=== PATIENT | female | born 1960 | race Caucasian/White ===

== ENCOUNTER 2022-05-28 19:37 | Inpatient (IN) | payer BC ==
[~2022-05-28] VITALS: Ht 172.7 cm; Wt 7.4 kg
[2022-05-28 21:24] LABS: HEMATOCRIT. 34.3 % (36.0-48.0); HEMOGLOBIN. 12.5 g/dL (12.0-16.0); MEAN CORPUSCULAR HEMOGLOBIN 32.7 pg (28.0-32.0); MEAN CORPUSCULAR VOLUME 89.6 fL (81.0-99.0); MEAN PLATELET VOLUME 9.4 fl (7.4-10.4); PLATELET 187 x1000/uL (130-400); RED BLOOD CELL COUNT 3.83 mill/uL (4.2-5.4); RED CELL DISTRIBUTION WIDTH 12.8 % (11.6-14.6)
[2022-05-28 22:09] LABS: CHLORIDE 56 mEq/L (98-107)
[2022-05-28 22:13] LABS: PLATELET ESTIMATE NORMAL
[2022-05-28 22:21] LABS: ETHANOL BLOOD < 10 mg/dL; PHOSPHORUS 5.4 mg/dL (2.5-4.9)
[2022-05-28 23:03] LABS: CHLORIDE 58 mEq/L (98-107)
[2022-05-28 23:10] LABS: PHOSPHORUS 5.7 mg/dL (2.5-4.9)
[2022-05-28] MEDS ORDERED: POTASSIUM CHLORIDE 20MEQ TABLET SR PO ONE (23:45)
[2022-05-28] MEDS ORDERED: SODIUM CHLORIDE 0.9% 1,000 ML IV ONE (23:45)
[2022-05-28] MEDS ORDERED: KCL 20MEQ/100ML PREMIX 100 ML IV ONE (23:45)
[2022-05-29] VITALS (11 sets, daily range): BP systolic 97–151; BP diastolic 50–78
[2022-05-29] MEDS ORDERED: GABAPENTIN 300MG CAPSULE PO ONE (00:30)
[2022-05-29] MEDS ORDERED: SODIUM CHLORIDE 0.9% 1,000 ML IV SCH (07:00)
[2022-05-29] MEDS ORDERED: ACETAMINOPHEN 325MG TABLET PO PRN ×3 (07:00→07:30)
[2022-05-29] MEDS ORDERED: ONDANSETRON HCL 4MG/2ML INJ IV PRN (07:30)
[2022-05-29] MEDS ORDERED: DOCUSATE SODIUM 100MG CAPSULE PO PRN (07:30)
[2022-05-29] MEDS ORDERED: CLONIDINE 0.1MG TABLET PO PRN (07:30)
[2022-05-29] MEDS ORDERED: IPRATROPIUM/ALBUTEROL 0.5-3(2.5)MG/3ML NEB HHN PRN (07:30)
[2022-05-29] MEDS ORDERED: HYDROMORPHONE HCL/PF 2MG/ML CPJ IV PRN (07:30)
[2022-05-29] MEDS ORDERED: LORAZEPAM 2MG/ML CPJ IV PRN (07:30)
[2022-05-29] MEDS ORDERED: MAGNESIUM/ALUMINUM HYDROXIDE/SIMETHICONE 30ML UDC PO PRN (07:30)
[2022-05-29] MEDS ORDERED: DIPHENHYDRAMINE 50MG/ML VIAL IV PRN (07:30)
[2022-05-29] MEDS ORDERED: NALOXONE HCL 0.4MG/ML VIAL IV PRN (08:00)
[2022-05-29] MEDS: GUAIFENESIN 200MG/10ML SUGAR FREE UDC PO PRN ×3 (08:31→20:47)
[2022-05-29] MEDS ORDERED: POTASSIUM CHLORIDE 20MEQ/PACKET PO SCH (09:00)
[2022-05-29] MEDS: KCL 20MEQ/100ML PREMIX 100 ML IV SCH ×2 (11:16→13:34)
[2022-05-29 12:20] LABS: CHLORIDE 71 mEq/L (98-107)
[2022-05-29 12:32] LABS: HEMATOCRIT. 26.4 % (36.0-48.0); HEMOGLOBIN. 9.5 g/dL (12.0-16.0); MEAN CORPUSCULAR HEMOGLOBIN 32.7 pg (28.0-32.0); MEAN CORPUSCULAR VOLUME 91.2 fL (81.0-99.0); MEAN PLATELET VOLUME 10.5 fl (7.4-10.4); PLATELET 176 x1000/uL (130-400); RED CELL DISTRIBUTION WIDTH 12.9 % (11.6-14.6)
[2022-05-29 12:35] LABS: T4 FREE 1.58 ng/dL (0.76-1.46)
[2022-05-29 13:16] LABS: PLATELET ESTIMATE NORMAL
[2022-05-29] MEDS ORDERED: POTASSIUM CHLORIDE 20MEQ TABLET SR PO SCH (14:00)
[2022-05-29 14:11] LABS: HDL CHOLESTEROL 37 mg/dL (40-59); LDL CHOLESTEROL 80 mg/dL (5-100)
[2022-05-29] MEDS: POTASSIUM CHLORIDE INJ 40 MEQ in SODIUM CHLORIDE 0.9% 1,000 ML IV SCH ×3 (17:32→23:22)
[2022-05-29] MEDS: KCL 20MEQ/100ML X 2 FOR TOTAL KCL 40MEQ/200ML IV SCH ×2 (17:32→19:00)
[2022-05-29 17:38] LABS: CREATINE KINASE MB FRACTION 1.3 ng/mL (0.5-3.6)
[2022-05-29] MEDS: IPRATROPIUM/ALBUTEROL 0.5-3(2.5)MG/3ML NEB HHN PRN (17:57)
[2022-05-29] MEDS ORDERED: ZOLPIDEM TARTRATE 5MG TABLET PO PRN (21:00)
[2022-05-29 21:15] LABS: CHLORIDE 72 mEq/L (98-107)
[2022-05-29] MEDS ORDERED: LOPERAMIDE HCL 2MG CAPSULE PO PRN (21:33)
[2022-05-29] MEDS ORDERED: POTASSIUM CHLORIDE 20MEQ TABLET SR PO NR (22:30)
[2022-05-29] MEDS ORDERED: KCL 20MEQ/100ML PREMIX 100 ML IV NR (23:30)
[2022-05-30] VITALS (10 sets, daily range): BP systolic 92–136; BP diastolic 47–78
[2022-05-30] MEDS: HYDROCODONE/ACETAMINOPHEN 5/325MG TABLET PO PRN (00:23)
[2022-05-30] MEDS: IPRATROPIUM/ALBUTEROL 0.5-3(2.5)MG/3ML NEB HHN PRN (00:48)
[2022-05-30 04:49] LABS: CREATINE KINASE MB FRACTION 1.3 ng/mL (0.5-3.6)
[2022-05-30 06:15] LABS: HEMOGLOBIN. 9.5 g/dL (12.0-16.0); MEAN CORPUSCULAR HEMOGLOBIN 33.1 pg (28.0-32.0); MEAN CORPUSCULAR VOLUME 94.1 fL (81.0-99.0); MEAN PLATELET VOLUME 10.3 fl (7.4-10.4); PLATELET 146 x1000/uL (130-400); RED BLOOD CELL COUNT 2.87 mill/uL (4.2-5.4)
[2022-05-30 06:53] LABS: CHLORIDE 77 mEq/L (98-107)
[2022-05-30 06:56] LABS: CREATINE KINASE 237 IU/L (26-192); CREATINE KINASE MB FRACTION 1.1 ng/mL (0.5-3.6)
[2022-05-30] MEDS: APIXABAN 5 MG TABLET PO SCH ×2 (08:41→17:01)
[2022-05-30] MEDS: GUAIFENESIN 200MG/10ML SUGAR FREE UDC PO PRN ×2 (09:34→17:04)
[2022-05-30] MEDS ORDERED: POTASSIUM CHLORIDE 20MEQ TABLET SR PO SCH (10:00)
[2022-05-30 13:02] LABS: PLATELET ESTIMATE NORMAL
[2022-05-30 14:49] LABS: CLARITY URINE CLEAR (CLEAR); COLOR URINE YELLOW (YELLOW); KETONES URINE TRACE (NEGATIVE); LEUKOCYTE ESTERASE URINE TRACE (NEGATIVE); NITRITE URINE NEGATIVE (NEGATIVE); OCCULT BLOOD URINE TRACE (NEGATIVE); PROTEIN URINE 1+ (NEGATIVE); SPECIFIC GRAVITY URINE 1.016 (1.005-1.030); UROBILINOGEN URINE 0.2 E.U./dL (0.2-1.0)
[2022-05-30 15:18] LABS: SODIUM URINE RANDOM 8 mEq/L
[2022-05-30 15:25] LABS: *AMPHETAMINES SCREEN URINE NEGATIVE (NEGATIVE); *BARBITURATES SCREEN URINE NEGATIVE (NEGATIVE); *BENZODIAZEPINES SCREEN URINE NEGATIVE (NEGATIVE); *COCAINE SCREEN URINE NEGATIVE (NEGATIVE); CANNABINOID URINE SCREEN PRESUMTIVE POSITIVE (NEGATIVE); METHADONE URINE SCREEN NEGATIVE (NEGATIVE); OPIATES URINE SCREEN PRESUMTIVE POSITIVE (NEGATIVE); PHENCYCLIDINE URINE SCREEN NEGATIVE (NEGATIVE)
[2022-05-31] VITALS (15 sets, daily range): BP systolic 90–142; BP diastolic 48–79
[2022-05-31] MEDS: GUAIFENESIN 200MG/10ML SUGAR FREE UDC PO PRN ×3 (02:01→16:05)
[2022-05-31 09:23] LABS: BASOPHILS % 0.5 % (0.0-2.0); EOSINOPHILS % 1.9 % (0.0-5.0); HEMATOCRIT. 23.6 % (36.0-48.0); HEMOGLOBIN. 8.3 g/dL (12.0-16.0); LYMPHOCYTES % 10.9 % (20.0-50.0); MEAN CORPUSCULAR HEMOGLOBIN 32.8 pg (28.0-32.0); MEAN CORPUSCULAR VOLUME 93.7 fL (81.0-99.0); MEAN PLATELET VOLUME 9.6 fl (7.4-10.4); MONOCYTES % 14.8 % (2.0-8.0); NEUTROPHILS % 71.9 % (40.0-76.0); PLATELET 163 x1000/uL (130-400); RED BLOOD CELL COUNT 2.51 mill/uL (4.2-5.4); RED CELL DISTRIBUTION WIDTH 12.9 % (11.6-14.6)
[2022-05-31 09:27] LABS: CHLORIDE 86 mEq/L (98-107)
[2022-05-31] MEDS: POTASSIUM CHLORIDE INJ 40 MEQ in SODIUM CHLORIDE 0.9% 1,000 ML IV SCH (09:48)
[2022-05-31] MEDS: APIXABAN 5 MG TABLET PO SCH ×2 (09:58→16:05)
[2022-05-31] MEDS: HYDROCODONE/ACETAMINOPHEN 5/325MG TABLET PO PRN (10:52)
[2022-05-31] MEDS: SODIUM CHLORIDE 0.9% 1,000 ML IV SCH ×2 (10:56→16:08)
[2022-05-31] MEDS ORDERED: SODIUM PHOS,M-BASIC-D-BASIC 30 MM in DEXT 5% WATER 500 ML IV NR (12:00)
[2022-06-01] VITALS (13 sets, daily range): BP systolic 108–148; BP diastolic 50–94
[2022-06-01 06:23] LABS: BASOPHILS % 0.8 % (0.0-2.0); EOSINOPHILS % 3.9 % (0.0-5.0); HEMATOCRIT. 27.1 % (36.0-48.0); HEMOGLOBIN. 9.4 g/dL (12.0-16.0); LYMPHOCYTES % 13.8 % (20.0-50.0); MEAN CORPUSCULAR HEMOGLOBIN 33.1 pg (28.0-32.0); NEUTROPHILS % 68.5 % (40.0-76.0); PLATELET 240 x1000/uL (130-400); RED BLOOD CELL COUNT 2.86 mill/uL (4.2-5.4); RED CELL DISTRIBUTION WIDTH 13.3 % (11.6-14.6)
[2022-06-01 06:44] LABS: CHLORIDE 91 mEq/L (98-107)
[2022-06-01 07:00] LABS: PHOSPHORUS 2.4 mg/dL (2.5-4.9)
[2022-06-01] MEDS: APIXABAN 5 MG TABLET PO SCH ×2 (08:29→17:05)
[2022-06-01] MEDS ORDERED: POTASSIUM PHOS,M-BASIC-D-BASIC 20 MMOL in DEXT 5% WATER 243.3333 ML IV NR (09:30)
[2022-06-02] VITALS (7 sets, daily range): BP systolic 119–139; BP diastolic 53–103
[2022-06-02 06:12] LABS: HEMATOCRIT. 22.7 % (36.0-48.0); MEAN CORPUSCULAR HEMOGLOBIN 33.4 pg (28.0-32.0); MEAN CORPUSCULAR VOLUME 94.8 fL (81.0-99.0); MEAN PLATELET VOLUME 8.4 fl (7.4-10.4); PLATELET 234 x1000/uL (130-400); RED CELL DISTRIBUTION WIDTH 13.7 % (11.6-14.6)
[2022-06-02 07:12] LABS: CHLORIDE 93 mEq/L (98-107)
[2022-06-02 07:20] LABS: PHOSPHORUS 2.9 mg/dL (2.5-4.9)
[2022-06-02] MEDS: APIXABAN 5 MG TABLET PO SCH (09:59)
[2022-06-02 20:37] LABS: PLATELET ESTIMATE NORMAL
== END 2022-06-02 18:17 | disposition home or self-care (01) | DRG 643 ==
LOC: ER 19:37 → MICUSO 23:58 → EDBEDREQ 05-29 00:37 → EDBEDREQTM 05-29 00:37 → 5EST 05-29 03:46
PROVIDERS: ADMIT Internal Medicine; ATTEND Internal Medicine
DX: E22.2 Syndrome of inappropriate secretion of antidiuretic hormone (principal); A48.1 Legionnaires' disease; N17.9 Acute kidney failure, unspecified; I48.91 Unspecified atrial fibrillation; R55 Syncope and collapse; E87.6 Hypokalemia; E83.39 Other disorders of phosphorus metabolism; D72.829 Elevated white blood cell count, unspecified; D64.9 Anemia, unspecified; E80.6 Other disorders of bilirubin metabolism; R00.1 Bradycardia, unspecified; F17.210 Nicotine dependence, cigarettes, uncomplicated; I11.9 Hypertensive heart disease without heart failure; I95.9 Hypotension, unspecified; S00.83XA Contusion of other part of head, initial encounter; F32.A Depression, unspecified; W18.30XA Fall on same level, unspecified, initial encounter; Z20.822 Contact with and (suspected) exposure to COVID-19; Y93.89 Activity, other specified; Y92.59 Other trade areas as the place of occurrence of the external cause; Y99.8 Other external cause status; Z79.01 Long term (current) use of anticoagulants
CPT/HCPCS: 36415; 70486; 71045; 80048; 80053; 80061; 80305; 80320; 81003; 82533; 82550; 82553; 83036; 83735; 83880; 83930; 83935; 84100; 84300; 84439; 84443; 84484; 85025; 85379; 87426; 87449; 93005; 93306; 97116; 97162; 99291; J3480; J3490; J7030; J7060; G0480